=== PATIENT | female | born 1960 | race Caucasian/White ===

== ENCOUNTER → 2018-05-08 07:38 | Outpatient (CLI) | payer OTHER, SELFPAY | PROVIDERS: PCP Naturopath; Visit Provider Naturopath | DX: Z00.00 Encounter for general adult medical examination without abnormal findings (principal); E03.9 Hypothyroidism, unspecified; Z53.9 Procedure and treatment not carried out, unspecified reason ==

== ENCOUNTER → 2018-08-20 06:59 | Outpatient (CLI) | payer OTHER, SELFPAY ==
[2018-08-20 08:50] LABS: Add Manual Diff / Slide Review NO; Eosinophils Percent Auto 3.3 % (2-4); Hematocrit 40.1 % (36-46); Hemoglobin 13.5 g/dL (12.0-16.0); Lymphocytes Percent Auto 46.6 % (25-40); Mean Corpuscular HGB Conc 33.8 % (30-36); Mean Corpuscular Volume 91.8 fL (80-100); Monocytes Percent Auto 8.6 % (3-14); Neutrophils Absolute Auto 1600 /uL (3000-5900); Neutrophils Percent Auto 40.5 % (50-75); Platelet Count 212 X10^3/uL (150-400); Red Blood Cell Count 4.36 X10^6/uL (4.0-5.2); White Blood Cell Count 3.9 X10^3/uL (4.5-11.0)
[2018-08-20 09:07] LABS: Alanine Aminotransferase 30 IU/L (9-52); Albumin 4.4 g/dL (3.5-5.0); Albumin Globulin Ratio 1.5 (1.0-2.8); Alkaline Phosphatase 46 U/L (38-126); Aspartate Aminotransferase 33 IU/L (14-36); BUN Creatinine Ratio 23.8 (6-22); Bilirubin Total 0.7 mg/dL (0.2-1.3); Blood Urea Nitrogen 19 mg/dL (7-17); Calcium 9.4 mg/dL (8.4-10.2); Carbon Dioxide 32 mmol/L (22-32); Chloride 103 mmol/L (98-107); Cholesterol 189 mg/dL (140-199); Estimated Glomerular Filt Rate > 60.0 mL/min (>60); Globulin 2.9 g/dL (1.7-4.1); Glucose 92 mg/dL (80-110); HDL Cholesterol 80 mg/dL (40-60); HEMOLYSIS 16 (0-50); LDL Cholesterol Calculated 99 mg/dL (<100); Potassium 3.8 mmol/L (3.4-5.1); Sodium 145 mmol/L (137-145); Total Protein 7.3 g/dL (6.3-8.2); Triglycerides 49 mg/dL (35-150)
[2018-08-20 09:36] LABS: Free T3, Triiodothyronine Free 2.84 pg/mL (2.77-5.27)
[2018-08-20 09:49] LABS: Thyroid Stimulating Hormone 2.25 uIU/mL (0.47-4.68)
== END ==
PROVIDERS: PCP Naturopath; Visit Provider Naturopath
DX: Z00.00 Encounter for general adult medical examination without abnormal findings (principal); E03.9 Hypothyroidism, unspecified
CPT/HCPCS: 36415; 80053; 80061; 84443; 84481; 85025

== ENCOUNTER → 2019-01-22 08:15 | Outpatient (CLI) | payer OTHER, SELFPAY ==
--- NOTE | 2019-01-22 | DI.MG.S_ITS ---
BILATERAL DIGITAL SCREENING MAMMOGRAM 3D/2D WITH CAD: 01/22/2019 CLINICAL: Routine screening. Family history of breast cancer. Comparison is made to exams dated: 09/28/2017 mammogram, 06/28/2016 mammogram, and 01/01/2015 mammogram - [facility]. The tissue of both breasts is heterogeneously dense. This may lower the sensitivity of mammography. Current study was also evaluated with a Computer Aided Detection (CAD) system. No significant masses, calcifications, or other findings are seen in either breast. There has been no significant interval change. IMPRESSION: NEGATIVE There is no mammographic evidence of malignancy. A 1 year screening mammogram is recommended. This exam was interpreted at Station ID: [id number]. NOTE: For mammograms, a report in lay terms will be sent to the patient. Approximately 15% of breast malignancies will not be visualized mammographically. In the management of a palpable breast mass, a negative mammogram must not discourage biopsy of a clinically suspicious lesion. Electronically Signed By: Alex francis/adele:01/22/2019 15:39:26 letter sent: Normal Exam ACR BI-RADS Category 1: Negative 3341F
== END ==
PROVIDERS: PCP Naturopath; Visit Provider Naturopath
DX: Z12.31 Encounter for screening mammogram for malignant neoplasm of breast (principal); Z80.3 Family history of malignant neoplasm of breast
CPT/HCPCS: 77063; 77067

== ENCOUNTER → 2019-09-19 07:50 | Outpatient (CLI) | payer OTHER, SELFPAY ==
[2019-09-19 08:59] LABS: Add Manual Diff / Slide Review NO; Basophils Absolute Auto 0 /uL (0-100); Basophils Percent Auto 0.9 % (0-2); Eosinophils Absolute Auto 100 /uL (0-450); Eosinophils Percent Auto 2.2 % (2-4); Hematocrit 39.1 % (36-46); Hemoglobin 13.2 g/dL (12.0-16.0); Lymphocytes Absolute Auto 1700 /uL (1100-4500); Lymphocytes Percent Auto 41.8 % (25-40); Mean Corpuscular HGB Conc 33.6 % (30-36); Mean Corpuscular Hemoglobin 31.1 PG (26-34); Mean Corpuscular Volume 92.6 fL (80-100); Monocytes Absolute Auto 400 /uL (0-900); Neutrophils Absolute Auto 1800 /uL (1500-7000); Neutrophils Percent Auto 46.1 % (50-75); Platelet Count 210 X10^3/uL (150-400); Red Blood Cell Count 4.22 X10^6/uL (4.0-5.2)
[2019-09-19 09:06] LABS: Alanine Aminotransferase 14 IU/L (<35); Albumin 4.3 g/dL (3.5-5.0); Albumin Globulin Ratio 1.5 (1.0-2.8); Alkaline Phosphatase 43 U/L (38-126); Aspartate Aminotransferase 26 IU/L (14-36); BUN Creatinine Ratio 28.3 (6-22); Bilirubin Total 0.5 mg/dL (0.2-1.3); Blood Urea Nitrogen 17 mg/dL (7-17); Calcium 9.7 mg/dL (8.4-10.2); Carbon Dioxide 31 mmol/L (22-32); Chloride 103 mmol/L (98-107); Estimated Glomerular Filt Rate > 60.0 mL/min (>60); Globulin 2.8 g/dL (1.7-4.1); Glucose 89 mg/dL (80-110); HEMOLYSIS < 15 (0-50); Potassium 4.1 mmol/L (3.4-5.1); Sodium 139 mmol/L (137-145); Total Protein 7.1 g/dL (6.3-8.2)
== END ==
PROVIDERS: PCP Naturopath; Visit Provider Naturopath
DX: Z00.00 Encounter for general adult medical examination without abnormal findings (principal); R53.83 Other fatigue
CPT/HCPCS: 36415; 80053; 84443; 85025

== ENCOUNTER → 2020-04-22 15:11 | Outpatient (ROUT) | payer OTHER, SELFPAY ==
[2020-04-22 15:26] LABS: Appearance Urine UA CLOUDY; Bilirubin Urine UA NEGATIVE (NEGATIVE); Color Urine UA YELLOW; Glucose Urine UA NEGATIVE (Negative); Ketones Urine UA 1+ (NEGATIVE); Leukocyte Esterase Urine UA 2+ (NEGATIVE); Nitrite Urine UA POSITIVE (Negative); Occult Blood Urine UA 3+ (Negative); Protein Urine UA 3+ (Negative); Specific Gravity Urine UA 1.015 (1.000-1.035); Urobilinogen Urine UA 0.2 E.U./dL (0.2)
[2020-04-22 15:44] LABS: pH Urine UA 6.5 (4.5-8.0)
[2020-04-22 15:50] LABS: RBC Urine 5-10/HPF (0-5/HPF); WBC Urine 30-100/HPF (0-5/HPF)
[2020-04-22 15:51] LABS: Amorphous Sediment Urine 1+; Bacteria Urine Many (>30); Culture Indicated Urine Specimen Cultured; Mucus Urine 1+ (Negative); Squamous Epithelial Cell Urine 0-1 /HPF (0-5/HPF)
== END ==
PROVIDERS: PCP Naturopath; Visit Provider Naturopath
DX: N39.0 Urinary tract infection, site not specified (principal)
CPT/HCPCS: 81001; 87077; 87086; 87186

== ENCOUNTER → 2020-07-27 15:12 | Outpatient (CLI) | payer OTHER, SELFPAY ==
--- NOTE | 2020-07-27 15:21 | DI.MG.S_ITS ---
Patient Name: ANAT GUZMAN date: 1960 Sex: F Attending Physician: Miguel Indications: Date: 07/27/2020 15:19 At the request of: JENNIE PERES Procedure: MM screening mammo BI BILATERAL DIGITAL SCREENING MAMMOGRAM 3D/2D WITH CAD: 07/27/2020 CLINICAL: Routine screening. Family history of breast cancer. Comparison is made to exams dated: 01/22/2019 mammogram, 09/28/2017 mammogram, and 06/28/2016 mammogram - [facility]. The tissue of both breasts is heterogeneously dense. This may lower the sensitivity of mammography. Current study was also evaluated with a Computer Aided Detection (CAD) system. No significant masses, calcifications, or other findings are seen in either breast. There has been no significant interval change. IMPRESSION: NEGATIVE There is no mammographic evidence of malignancy. A 1 year screening mammogram is recommended. This exam was interpreted at Station ID: [id number]. NOTE: For mammograms, a report in lay terms will be sent to the patient. Approximately 15% of breast malignancies will not be visualized mammographically. In the management of a palpable breast mass, a negative mammogram must not discourage biopsy of a clinically suspicious lesion. Electronically Signed By: Marcellus duran/adele:07/27/2020 15:29:38 copy to: JENNIE PERES letter sent: Normal Exam ACR BI-RADS Category 1: Negative 3341F
== END ==
PROVIDERS: PCP Naturopath; Referring Provider Naturopath; Visit Provider Naturopath
DX: Z12.31 Encounter for screening mammogram for malignant neoplasm of breast (principal); Z80.3 Family history of malignant neoplasm of breast
CPT/HCPCS: 77063; 77067

== ENCOUNTER → 2020-12-02 06:50 | Outpatient (CLI) | payer OTHER, SELFPAY ==
[2020-12-02 08:46] LABS: Add Manual Diff / Slide Review NO; Basophils Absolute Auto 0 /uL (0-100); Eosinophils Absolute Auto 100 /uL (0-450); Hematocrit 37.5 % (36-46); Hemoglobin 12.2 g/dL (12.0-16.0); Lymphocytes Absolute Auto 1700 /uL (1100-4500); Lymphocytes Percent Auto 43.8 % (25-40); Mean Corpuscular HGB Conc 32.5 % (30-36); Mean Corpuscular Hemoglobin 30.5 PG (26-34); Mean Corpuscular Volume 93.9 fL (80-100); Monocytes Absolute Auto 300 /uL (0-900); Monocytes Percent Auto 8.8 % (3-14); Neutrophils Absolute Auto 1700 /uL (1500-7000); Neutrophils Percent Auto 43.4 % (50-75); Platelet Count 211 X10^3/uL (150-400); Red Blood Cell Count 3.99 X10^6/uL (4.0-5.2); Red Cell Distribution Width 12.7 % (11.6-14.8); White Blood Cell Count 3.8 X10^3/uL (4.5-11.0)
[2020-12-02 09:01] LABS: Alanine Aminotransferase 13 IU/L (<35); Albumin 3.9 g/dL (3.5-5.0); Albumin Globulin Ratio 1.4 (1.0-2.8); Alkaline Phosphatase 42 U/L (38-126); Aspartate Aminotransferase 31 IU/L (14-36); BUN Creatinine Ratio 28.2 (6-22); Bilirubin Total 0.6 mg/dL (0.2-1.3); Blood Urea Nitrogen 20 mg/dL (7-17); Calcium 9.2 mg/dL (8.4-10.2); Carbon Dioxide 34 mmol/L (22-32); Chloride 104 mmol/L (98-107); Cholesterol 193 mg/dL (140-199); Estimated Glomerular Filt Rate > 60.0 mL/min (>60); Globulin 2.7 g/dL (1.7-4.1); Glucose 83 mg/dL (80-110); HDL Cholesterol 72 mg/dL (40-60); HEMOLYSIS < 15 (0-50); LDL Cholesterol Calculated 109 mg/dL (<100); Potassium 3.9 mmol/L (3.4-5.1); Sodium 139 mmol/L (137-145); Total Protein 6.6 g/dL (6.3-8.2); Triglycerides 60 mg/dL (35-150)
== END ==
PROVIDERS: PCP Naturopath; Referring Provider Naturopath; Visit Provider Naturopath
DX: Z00.00 Encounter for general adult medical examination without abnormal findings (principal); E03.9 Hypothyroidism, unspecified
CPT/HCPCS: 36415; 80053; 80061; 84443; 85025

== ENCOUNTER → 2021-08-05 10:28 | Outpatient (CLI) | payer OTHER, SELFPAY ==
--- NOTE | 2021-08-05 | DI.MG.S_ITS ---
BILATERAL DIGITAL SCREENING MAMMOGRAM 3D/2D WITH CAD: 08/05/2021 CLINICAL: Routine screening. Family history of breast cancer. Comparison is made to exams dated: 07/27/2020 mammogram, 01/22/2019 mammogram, and 09/28/2017 mammogram - [facility]. The tissue of both breasts is heterogeneously dense. This may lower the sensitivity of mammography. Current study was also evaluated with a Computer Aided Detection (CAD) system. No significant masses, calcifications, or other findings are seen in either breast. There has been no significant interval change. IMPRESSION: NEGATIVE There is no mammographic evidence of malignancy. A 1 year screening mammogram is recommended. This exam was interpreted at Station ID: [id number]. NOTE: For mammograms, a report in lay terms will be sent to the patient. Approximately 15% of breast malignancies will not be visualized mammographically. In the management of a palpable breast mass, a negative mammogram must not discourage biopsy of a clinically suspicious lesion. Electronically Signed By: Catarino Orozco M.D., jr/adele:08/05/2021 11:35:02 copy to: JENNIE PERES letter sent: Normal Exam ACR BI-RADS Category 1: Negative 3341F
== END ==
PROVIDERS: PCP Naturopath; Referring Provider Naturopath; Visit Provider Naturopath
DX: Z12.31 Encounter for screening mammogram for malignant neoplasm of breast (principal)
CPT/HCPCS: 77063; 77067

== ENCOUNTER → 2022-02-16 07:58 | Outpatient (CLI) | payer OTHER, SELFPAY ==
[2022-02-16 08:28] LABS: Add Manual Diff / Slide Review NO; Basophils Absolute Auto 0 /uL (0-100); Basophils Percent Auto 1.1 % (0-2); Eosinophils Absolute Auto 100 /uL (0-450); Eosinophils Percent Auto 2.9 % (2-4); Hematocrit 37.1 % (36-46); Hemoglobin 12.6 g/dL (12.0-16.0); Lymphocytes Absolute Auto 1500 /uL (1100-4500); Lymphocytes Percent Auto 45.7 % (25-40); Mean Corpuscular HGB Conc 33.9 % (30-36); Mean Corpuscular Hemoglobin 31.2 PG (26-34); Mean Corpuscular Volume 92.1 fL (80-100); Monocytes Absolute Auto 300 /uL (0-900); Monocytes Percent Auto 9.7 % (3-14); Neutrophils Absolute Auto 1400 /uL (1500-7000); Neutrophils Percent Auto 40.6 % (50-75); Platelet Count 212 X10^3/uL (150-400); Red Blood Cell Count 4.03 X10^6/uL (4.0-5.2); Red Cell Distribution Width 12.9 % (11.6-14.8); White Blood Cell Count 3.4 X10^3/uL (4.5-11.0)
[2022-02-16 08:43] LABS: Alanine Aminotransferase 14 IU/L (<35); Albumin 4.2 g/dL (3.5-5.0); Albumin Globulin Ratio 1.4 (1.0-2.8); Alkaline Phosphatase 36 U/L (38-126); Aspartate Aminotransferase 25 IU/L (14-36); BUN Creatinine Ratio 19.4 (6-22); Bilirubin Total 0.8 mg/dL (0.2-1.3); Blood Urea Nitrogen 13 mg/dL (7-17); Calcium 9.1 mg/dL (8.4-10.2); Carbon Dioxide 31 mmol/L (22-32); Chloride 106 mmol/L (98-107); Cholesterol 191 mg/dL (140-199); Estimated Glomerular Filt Rate > 60.0 mL/min (>60); Globulin 2.9 g/dL (1.7-4.1); Glucose 95 mg/dL (80-110); HDL Cholesterol 70 mg/dL (40-60); HEMOLYSIS < 15 (0-50); LDL Cholesterol Calculated 106 mg/dL (<100); Potassium 3.9 mmol/L (3.4-5.1); Sodium 138 mmol/L (137-145); Total Protein 7.1 g/dL (6.3-8.2); Triglycerides 74 mg/dL (35-150)
[2022-02-16 11:03] LABS: Free T3, Triiodothyronine Free 3.31 pg/mL (2.77-5.27); Free T4, Direct Thyroxine 0.99 ng/dL (0.78-2.19)
[2022-02-16 11:17] LABS: Thyroid Stimulating Hormone 3.59 uIU/mL (0.47-4.68)
== END ==
PROVIDERS: PCP Family Medicine; Referring Provider Family Medicine; Visit Provider Family Medicine
DX: E03.9 Hypothyroidism, unspecified (principal); M25.561 Pain in right knee; M25.562 Pain in left knee; M25.569 Pain in unspecified knee; Z13.220 Encounter for screening for lipoid disorders
CPT/HCPCS: 36415; 80053; 80061; 84439; 84443; 84481; 85025

== ENCOUNTER → 2022-04-10 09:19 | Outpatient (CLI) | payer OTHER, SELFPAY ==
[2022-04-10 12:27] LABS: COVID19 -Nasal RAPID Negative (Negative)
== END ==
PROVIDERS: PCP Family Medicine; Visit Provider Surgery
DX: Z20.822 Contact with and (suspected) exposure to COVID-19 (principal); Z01.812 Encounter for preprocedural laboratory examination
CPT/HCPCS: 87635; C9803

== ENCOUNTER 2022-04-11 06:27 | Day surgery (SDC) | payer OTHER, SELFPAY ==
[2022-04-11] VITALS (7 sets, daily range): BP systolic 96–111; BP diastolic 53–69; PULSE 53–59; RESP 11–20; TEMP 36.3–36.8; O2SAT 98–100; BMI 23.3
[2022-04-11] MEDS: LACTATED RINGERS 1,000 ML 42 ML IV (07:02)
--- NOTE | 2022-04-11 07:47 | PM.HP.1 ---
History of Present Illness History of Present Illness Date Patient Seen: 04/11/22 Time Patient Seen: 07:47 Chief complaint: SCREENING COLONOSCOPY Narrative: The patient presents for colorectal screening. She had a previous colonoscopy greater than 10 years ago which was reportedly normal No personal or family history of colon cancer. On further history denies any recent gastrointestinal symptoms. No nausea, vomiting, abdominal pain, loss of appetite, unexplained weight loss, change in bowel habits, diarrhea, constipation, melena, hematochezia, or bright red blood per rectum. Patient History Medical History Anxiety and depression (~1979) Bilateral knee pain Foot pain (~2019) Herpes (~2010) History of urinary incontinence (~2017) Osteopenia (~2014) Somatic dysfunction of lower extremity Wears glasses Surgical History Anesthesia Status post delivery Status post tubal ligation Family & Social History Family History Father Hyperlipidemia Valvular heart disease High cholesterol Sister Age: 70 Breast CA Osteopenia Thyroid disease Sister Paget's disease of the breast Breast CA Mother No problems noted. Grandfather Cancer Grandmother History of heart disease Grandfather History of heart disease Social History: household members significant other Tobacco & Substance use: Smoking Status Never smoker alcohol intake current alcohol intake frequency a few times a month Substance Use Type does not use Meds Home Medications and Allergies Home Medications Medication Instructions Recorded Confirmed Type acyclovir 400 mg tablet 400 mg PO TID #30 tab 11/23/16 02/03/22 Rx thyroid (pork) 30 mg tablet 30 mg PO Q DAY #90 tab 09/26/17 02/03/22 Rx ([facility] Thyroid) Osteoben PO 10/04/21 02/03/22 History cholecalciferol (vitamin D3) 50 50 mcg PO DAILY 10/04/21 02/03/22 History mcg (2,000 unit) capsule sleep 3 PO 10/04/21 02/03/22 History Allergies Allergy/AdvReac Type Severity Reaction Status Date / Time No Known Drug Allergies Allergy Verified 04/11/22 06:56 Exam Vital Signs (past 8 hours): - 04/11/22 06:51 Temperature 97.5 F L Pulse Rate 54 L Respiratory Rate 15 Blood Pressure 111/69 Pulse Oximetry 100 Oxygen Delivery Method Room Air Narrative Exam Narrative: GENERAL: Adult woman in no apparent distress HEENT: No scleral icterus CV: Regular rate, no peripheral edema LUNGS: No increased work of breathing. Patient speaks in full sentences without oxygen support. ABDOMEN: Soft, non-tender, non-distended NEURO: Nonfocal, normal strength throughout, normal gait. SKIN: Warm and dry Assessment & Plan Assessment & Plan narrative: The patient requires colorectal screening and colonoscopy is recommended. Technical details were discussed. Risks, benefits, alternatives explained. Risks including but not limited to myocardial infarction, aspiration, bleeding, pain, missed lesion, incomplete examination, need for further radiographic studies, colonic perforation, and need for major abdominal surgery were discussed. All questions were answered to their satisfaction, and they are in agreement with this plan. Time Spent With Patient Critical Care time: I spent a total of [] minutes of critical care time on this patient's care today; this time is exclusive of procedural time.
[2022-04-11] MEDS: fentaNYL 250 MCG/5 ML INJ IV (08:24)
[2022-04-11] MEDS: MIDAZOLAM 5 MG/5 ML VIAL IV (08:24)
--- NOTE | 2022-04-11 08:31 | P.OP.COLON_ITS ---
Operative Date/Time/Diagnoses Date of procedure: 04/11/22 Time of procedure: 08:31 Pre-op diagnosis: Screening Post-op diagnosis: same Procedure & Clinicians Study performed: Colonoscopy Same procedure as scheduled: Yes Indications: Screening Surgeon: Rayo Campos Procedure Notes Procedure in detail: Medications: Conscious sedation using 7mg IV midazolam and 200mcg IV of fentanyl The history and physical was performed/updated and the patient is ASA class is 1. The procedure was discussed in detail with the patient. Potential risks complications including infection, bleeding, missed diagnosis, perforation, need for surgery, and were explained. Their questions were answered and informed consent was obtained. Patient was brought to the procedure room and placed standard monitoring equipment. The patient's vital signs were monitored continuously throughout the entire procedure. Prior to starting time-out was performed. The patient was placed in the left lateral recumbent position. Procedural sedation was administ ered. Examination began with a thorough inspection of the perianal area there was no evidence of fissures, fistulae, external hemorrhoids or cutaneous malignancy. The colonoscopy scope was then placed into the anal canal and was advanced to the cecum, which was identified by the ileocecal valve, the appendiceal orifice and the confluence of the taenia. The scope was then slowly withdrawn examining colon thoroughly in all directions, irrigating it of any residual stool. FINDINGS 1. No masses or polyps 2. Normal healthy colon The patient tolerated the procedure well. They will be discharged once criteria are met. The prep was of good/excellent quality. The withdrawl time was 6 minutes. The sedation time was 25 minutes. Specimen(s): none sent Complications: none Impression: Normal colonoscopy Post-procedure Recommendations: Colonoscopy in 10 years Disposition: same day surgery
[2022-04-11] MEDS: LACTATED RINGERS 1,000 ML 200 ML IV (08:36)
--- NOTE | 2022-04-11 09:09 | SUR.PHASEII ---
pt given discharge instructions. pt denies any complaints. Pt to be discharged with her . pt had apple juice and coffee prior to discharge.
== END 2022-04-11 09:11 | disposition home or self-care (01) ==
PROVIDERS: PCP Family Medicine; Referring Provider Surgery; Visit Provider Surgery
PROC: 0DJD8ZZ Inspection of Lower Intestinal Tract, Via Natural or Artificial Opening Endoscopic (ICD-10-PCS; CPT 45378; principal; 2022-04-11 07:45)
DX: Z12.11 Encounter for screening for malignant neoplasm of colon (principal)
CPT/HCPCS: 45378; 99152; 99153; J2250; J3010

== ENCOUNTER → 2022-09-14 08:05 | Outpatient (CLI) | payer OTHER, SELFPAY ==
--- NOTE | 2022-09-14 08:07 | DI.MG.S_ITS ---
BILATERAL DIGITAL SCREENING MAMMOGRAM 3D/2D WITH CAD: 09/14/2022 CLINICAL: Routine screening. Family history of breast cancer. Comparison is made to exams dated: 08/05/2021 mammogram, 07/27/2020 mammogram, and 01/22/2019 mammogram - [facility]. Both breasts are heterogeneously dense, which may obscure small masses (category c / 51-75% glandular tissue). Current study was also evaluated with a Computer Aided Detection (CAD) system. No significant masses, calcifications, or other findings are seen in either breast. There has been no significant interval change. IMPRESSION: NEGATIVE There is no mammographic evidence of malignancy. A 1 year screening mammogram is recommended. Based on Tyrer-Cuzick model (a risk assessment model), the patient's lifetime risk is 31.3% and her 10 year risk is 15.6%. If a patient has an elevated risk, a more comprehensive evaluation should be considered and/or a referral to a genetic counselor. The [place] [employer], [employer] [employer], and NCCN Guidelines advise the consideration of Breast MRI as an adjunct to screening mammography in patients whose Lifetime risk to develop breast cancer is 20% or higher. This exam was interpreted at Station ID: [id number]. NOTE: For mammograms, a report in lay terms will be sent to the patient. Approximately 15% of breast malignancies will not be visualized mammographically. In the management of a palpable breast mass, a negative mammogram must not discourage biopsy of a clinically suspicious lesion. Electronically Signed By: Marcellus duran/adele:09/14/2022 15:48:58 copy to: JENNIE PERES letter sent: Normal Exam ACR BI-RADS Category 1: Negative 3341F
== END ==
PROVIDERS: PCP Family Medicine; Referring Provider Family Medicine; Visit Provider Family Medicine
DX: Z12.31 Encounter for screening mammogram for malignant neoplasm of breast (principal); Z80.3 Family history of malignant neoplasm of breast
CPT/HCPCS: 77063; 77067

== ENCOUNTER → 2023-03-01 10:20 | Outpatient (CLI) | payer OTHER, SELFPAY ==
--- NOTE | 2023-03-01 10:38 | DI.DEXA.S_ITS ---
Bone Density Report Name: ANAT GUZMAN Age: 62 Sex: Female Ethnicity: White Date of : 1960 Indication: osteopenia; Referring Provider: SASKIA FORD Study: Bone densitometry was performed. Exam Date: March 01, 2023 Accession number: [id number] Bone Density: Region BMD T-score Z-score Classification AP Spine(L1-L4) 0.799 -2.3 -0.5 Osteopenia Femoral Neck (Left) 0.693 -1.4 0.1 Osteopenia Total Hip (Left) 0.780 -1.3 -0.1 Osteopenia Femoral Neck (Right) 0.710 -1.3 0.2 Osteopenia Total Hip (Right) 0.828 -0.9 0.3 Normal Total Hip Mean 0.804 -1.1 0.1 Osteopenia World Health Organization criteria for BMD impression classify patients as: Normal (T-score at or above -1.0), Osteopenia (T-score between -1.0 and -2.5), or Osteoporosis (T-score at or below -2.5). 10-year Fracture Risk(1): Major Osteoporotic Fracture 8.3% Hip Fracture 0.8% Reported Risk Factors: [place] (), Neck BMD=0.693, BMI=23.4 (1) FRAX(R) Version 3.08. Fracture probability calculated for an untreated patient. Fracture probability may be lower if the patient has received treatment. Previous Exams: -- Region Exam Age BMD T-score BMD Change BMD Change Date g/cm2 vs Baseline vs Previous -- AP Spine (L1-L4) 03/01/2023 62 0.799 -2.3 -0.132 (-14.2%)# -0.132 (-14.2%)# 10/02/2016 56 0.931 -1.1 Total Hip(Left) 03/01/2023 62 0.780 -1.3 -0.048 (-5.8%)# -0.048 (-5.8%)# 10/02/2016 56 0.828 -0.9 Total Hip(Right) 03/01/2023 62 0.828 -0.9 -0.019 (-2.3%)# -0.019 (-2.3%)# 10/02/2016 56 0.847 -0.8 -- *Denotes significance at 95% confidence level, LSC for AP Spine = 0.022 g/cm2, LSC for Total Hip = 0.027 g/cm2 # Denotes dissimilar scan types or analysis methods Impression: The patient has low bone mass, based on the Total Spine T-score. The patient has an estimated ten-year risk of hip fracture of 0.8% and an estimated ten-year risk of major fracture of 8.3%, based on the WHO FRAX algorithm. No significant bone loss was observed. Discussion: BONE DENSITY IS LOW AT ONE OR MORE SKELETAL SITES. This patient's lowest T-score is low at one or more skeletal sites. It meets the World Health Organization's (WHO) criteria for ?low bone mass? (T-score between -1.0 and -2.5). The patient's 10-year risk of fracture as calculated by FRAX is less than the threshold where pharmacological therapy is recommended by the National Osteoporosis Foundation (NOF). However, all treatment decisions require clinical judgment and consideration of individual patient factors, including patient preferences, comorbidities, previous drug use, risk factors not captured in the FRAX model (e.g., frailty, falls, vitamin D deficiency, increased bone turnover, interval significant decline in bone density) and possible under or overestimation of fracture risk by FRAX. The patient should follow a healthful lifestyle (good nutrition with adequate calcium and vitamin D, and appropriate weight-bearing exercise). Follow-Up: Consider repeating this study in 2 to 3 years to reassess this patient's status, or sooner if there is some new clinical indication. Reported by: ELOISE NUGENT M.D. on 03/01/2023 10:45:00 AM.
== END ==
PROVIDERS: PCP Family Medicine; Referring Provider Family Medicine; Visit Provider Family Medicine
DX: M85.88 Other specified disorders of bone density and structure, other site (principal); E03.9 Hypothyroidism, unspecified; Z78.0 Asymptomatic menopausal state
CPT/HCPCS: 77080

== ENCOUNTER → 2023-04-11 10:37 | Outpatient (CLI) | payer OTHER, SELFPAY ==
[2023-04-11 12:10] LABS: Free T3, Triiodothyronine Free 4.43 pg/mL (2.77-5.27); Free T4, Direct Thyroxine 0.85 ng/dL (0.78-2.19)
[2023-04-11 12:23] LABS: Thyroid Stimulating Hormone 1.85 uIU/mL (0.47-4.68)
== END ==
PROVIDERS: PCP Family Medicine; Referring Provider Family Medicine; Visit Provider Family Medicine
DX: E03.9 Hypothyroidism, unspecified (principal)
CPT/HCPCS: 36415; 84439; 84443; 84481

== ENCOUNTER → 2023-06-14 16:29 | Outpatient (CLI) | payer OTHER, SELFPAY ==
--- NOTE | 2023-06-14 16:33 | DI.RAD.S_ITS ---
PROCEDURE: XR KNEE RT 1TO2V INDICATIONS: knee pain TECHNIQUE: 2 views of the knee were acquired. COMPARISON: [facility], , KNEE 3V LEFT, 03/25/2011, 9:44. [facility], , KNEE 3V RIGHT, 03/25/2011, 9:44. FINDINGS: Bones: No acute fractures or dislocations. No suspicious bony lesions. Small suprapatellar enthesophyte. Mild joint space narrowing in the lateral femorotibial compartment. Soft tissues: No joint effusion. No suspicious soft tissue calcifications. IMPRESSION: Mild osteoarthrosis. Approved by: Marcellus Dubois M.D. on 06/15/2023 at 10:44
--- NOTE | 2023-06-14 16:33 | DI.RAD.S_ITS ---
PROCEDURE: XR KNEE LT 1TO2V INDICATIONS: knee pain TECHNIQUE: 2 views of the knee were acquired. COMPARISON: [facility], , KNEE 3V LEFT, 03/25/2011, 9:44. FINDINGS: Bones: No acute fractures or dislocations. No suspicious bony lesions. Mild joint space narrowing is seen in the lateral femorotibial compartment. Soft tissues: No joint effusion. No suspicious soft tissue calcifications. IMPRESSION: Mild lateral compartment osteoarthrosis. Dictated by: Marcellus Dubois M.D. on 06/15/2023 at 10:41 Approved by: Marcellus Dubois M.D. on 06/15/2023 at 10:42
== END ==
PROVIDERS: PCP Family Medicine; Referring Provider Family Medicine; Visit Provider Family Medicine
DX: M17.0 Bilateral primary osteoarthritis of knee (principal); M25.561 Pain in right knee; M25.562 Pain in left knee
CPT/HCPCS: 73560

== ENCOUNTER 2023-07-13 09:00 | Outpatient (RCR) | payer OTHER, SELFPAY ==
--- NOTE | 2023-06-22 17:09 | PT.OIE ---
Current Diagnoses Pain in right knee (06/22/23) Pain in left knee (06/22/23) Past Medical History (Last Updated 01/25/23 @ 10:01 by Jared Birch DO) Anxiety and depression (~1979) Bilateral knee pain Body posture problem Cervical somatic dysfunction Chronic post-traumatic headache Cranial somatic dysfunction Fall (on)(from) incline, sequela Foot pain (~2019) Head injury due to trauma Herpes (~2010) History of urinary incontinence (~2017) Neck stiffness Osteopenia (~2014) Segmental and somatic dysfunction of rib cage Somatic dysfunction of lower extremity Wears glasses Past Surgical History (Last Reviewed 04/11/22 @ 07:48 by Rayo Campos MD) Anesthesia Status post delivery Status post tubal ligation Visit Care Team Role Provider Type Jared Birch DO Attending Provider Physician Family Provider Primary Care Provider Referring Provider Specialty: Family Practice Address: [address] [place] [address] Email: Physical Therapy Initial Evaluation PT-OP-A Visit Information Start: 06/22/23 16:04 Freq: Status: Active Protocol: Document 06/22/23 16:05 ED (Rec: 06/22/23 17:09 ED [id number]) Out-Patient Physical Therapy Visit Information Visit Information Visit Type Initial Evaluation Visit Start Time 16:00 Visit Stop Time 16:45 Total Visit Minutes 45 Visit Number 1 PT-OP-B Current Condition Start: 06/22/23 16:04 Freq: Status: Active Protocol: Document 06/22/23 16:05 ED (Rec: 06/22/23 17:09 ED [id number]) Current Condition History of Current Condition Current Complaints B knee pain History of Current Condition Pt states that she has been noticing bilateral knee pain mostly after long hikes. She states she had radiographs which revealed mild OA in both knees. She states that she will have a little swelling and pain after long hikes, especially when going down the mountain. Pt states that she used to lift weights but has not been doing that since COVID started. She states that she has 5# ankle weights at home and no other exercise equipment. Treatment Goals Patient/Caregiver Goals Be able to hike 8 miles c/o debilitating pain. PT-OP-C Subjective Start: 06/22/23 16:04 Freq: Status: Active Protocol: Document 06/22/23 16:05 ED (Rec: 06/22/23 17:09 ED [id number]) OP-PT Subjective Patient Comments Patient Reported Progress Same Patient Questionnaires Lower Extremity Functional Scale LEFS Score 64/80 LEFS Impairment 1 to 19% Impaired (Score 63-79 ) OP-PT Pain Assessment Location knee Intensity 4 Scale Used Numeric (0 - 10) Description Dull,Pressure Pain Aggravating Factors Activity,Exercise,Stair Climbing PT-OP-K Range of Motion Start: 06/22/23 16:04 Freq: Status: Active Protocol: Document 06/22/23 16:05 ED (Rec: 06/22/23 17:09 ED [id number]) Knee Goniometric Range of Motion Knee Right Patient Position Supine Flexion Active (degrees) 135 Extension Active (degrees) 5 Comments lacking 5 degrees ext Left Patient Position Supine Flexion Active (degrees) 135 Extension Active (degrees) 5 Comments lacking 5 degrees ext PT-OP-M Strength Start: 06/22/23 16:04 Freq: Status: Active Protocol: Document 06/22/23 16:05 ED (Rec: 06/22/23 17:09 ED [id number]) Knee Strength Knee Manual Muscle Testing Right Flexion (S2) 5 Normal Extension (L3) 5 Normal Left Flexion (S2) 5 Normal Extension (L3) 5 Normal PT-OP-Q Treatments Start: 06/22/23 16:04 Freq: Status: Active Protocol: Document 06/22/23 16:05 ED (Rec: 06/22/23 17:09 ED [id number]) Therapeutic Exercises Supine Exercises bridge Side bilateral Reps/Minutes 3x8-12 Comments unilateral Sitting Exercises LAQ Side bilateral Reps/Minutes [id number] Comments unilateral Standing Exercises heel raise Side bilateral Reps/Minutes 2-3xfatigue Comments unilateral wall squat Reps/Minutes [id number]'' Comments isometric split squat Side bilateral Reps/Minutes [id number] Other Exercises couch stretch Side bilateral Reps/Minutes x30-60'' PT-OP-T Assessment and Plan Start: 06/22/23 16:04 Freq: Status: Active Protocol: Document 06/22/23 16:05 ED (Rec: 06/22/23 17:09 ED [id number]) Physical Therapy Assessment Rehab Potential Rehabilitation Potential Good Evaluation Complexity Number of Personal Factors/Comorbidities 1-2 Number of Body Systems Impaired 1-2 Clinical Presentation at Evaluation Stable Impairments Impairments Activity Tolerance,Pain,ROM Goals Four Impairment LEFs Skilled Nursing Goal (LTG) Pt will ipmrove LEFS score to 70/80. Three Impairment pain Short Term Goal (STG) Pt will report 20% improvement in pain during recreational activities. STG Duration 3 weeks Skilled Nursing Goal (LTG) Pt will report 50% improvement in pain during recreational activities. LTG Duration 6-8 weeks Two Impairment ROM Short Term Goal (STG) Pt will improve knee extension ROM to 0 degrees STG Duration 3-4 weeks One Impairment HEP Short Term Goal (STG) Pt will report performing HEP 2-3 days/week. STG Duration 2 weeks Leather Cutter Goal (LTG) Pt will report performing HEP 2-3 days/week. LTG Duration 6 weeks Assessment Summary Assessment Pt reported to PT c/ complaints of bilateral knee pain (located mostly laterally ) that occurs primarily after long hikes (~8 miles). She demonstrated reduced extension ROM by about 5 degrees but had full knee flexion ROM. Pt is an active adult and is able to hike 4 miles comfortably. I do not believe she has any significant knee pathology but her pain/discomfort is geared more towards load intolerance d/t increase in steps and overall force in knee during longer hikes. Pt provided c/ comprehensive strengthening routine for LEs including: wall squats, split squats, single leg bridges, single leg heel raises, couch stretch, and LAQ which she was able to perform during evaluation c/o pain. PT will work on progressing patient in exercises so she can perform longer hikes c/o pain. Physical Therapy Plan Frequency and Duration Frequency of Treatment 1x/Week Duration of treatment (weeks) 10 Plan of Care Start Date 06/22/23 Plan of Care End Date 09/20/23 Therapeutic Interventions Therapeutic Interventions Balance Training,Gait Training ,Home Exercise Program,Joint Mobilizations,Manual Therapy, Soft Tissue Mobilization, Taping,Therapeutic Activities, Therapeutic Exercises Modalities Biofeedback,Cold Pack/Ice Massage,Electric Stimulation, Hot Packs Next Visit Focus/Plan Next Note Type Treatment Note Next Visit Plan bike, HEP (split squat, single leg bridge, single leg heel raise, wall squat, LAQ, couch stretch), SL balance, drop jumps
--- NOTE | 2023-06-22 17:12 | PT.OPPOC ---
Physical, Occupational & Speech Therapy At [facility] Current Diagnoses Pain in right knee (06/22/23) Pain in left knee (06/22/23) Visit Care Team Role Provider Type Jared Birch DO Attending Provider Physician Family Provider Primary Care Provider Referring Provider Specialty: Family Practice Address: [address] [place] [address], [facility] Email: Plan Of Care PT-OP-T Assessment and Plan Start: 06/22/23 16:04 Freq: Status: Active Protocol: Document 06/22/23 16:05 ED (Rec: 06/22/23 17:09 ED [id number]) Physical Therapy Assessment Rehab Potential Rehabilitation Potential Good Evaluation Complexity Number of Personal Factors/Comorbidities 1-2 Number of Body Systems Impaired 1-2 Clinical Presentation at Evaluation Stable Impairments Impairments Activity Tolerance,Pain,ROM Goals Four Impairment LEFs Jail Goal (LTG) Pt will [place] LEFS score to 70/80. Three Impairment pain Short Term Goal (STG) Pt will report 20% improvement in pain during recreational activities. STG Duration 3 weeks Communications Strategist Goal (LTG) Pt will report 50% improvement in pain during recreational activities. LTG Duration 6-8 weeks Two Impairment ROM Short Term Goal (STG) Pt will improve knee extension ROM to 0 degrees STG Duration 3-4 weeks One Impairment HEP Short Term Goal (STG) Pt will report performing HEP 2-3 days/week. STG Duration 2 weeks Jail Goal (LTG) Pt will report performing HEP 2-3 days/week. LTG Duration 6 weeks Assessment Summary Assessment Pt reported to PT c/ complaints of bilateral knee pain (located mostly laterally ) that occurs primarily after long hikes (~8 miles). She demonstrated reduced extension ROM by about 5 degrees but had full knee flexion ROM. Pt is an active adult and is able to hike 4 miles comfortably. I do not believe she has any significant knee pathology but her pain/discomfort is geared more towards load intolerance d/t increase in steps and overall force in knee during longer hikes. Pt provided c/ comprehensive strengthening routine for LEs including: wall squats, split squats, single leg bridges, single leg heel raises, couch stretch, and LAQ which she was able to perform during evaluation c/o pain. PT will work on progressing patient in exercises so she can perform longer hikes c/o pain. Physical Therapy Plan Frequency and Duration Frequency of Treatment 1x/Week Duration of treatment (weeks) 10 Plan of Care Start Date 06/22/23 Plan of Care End Date 09/20/23 Therapeutic Interventions Therapeutic Interventions Balance Training,Gait Training ,Home Exercise Program,Joint Mobilizations,Manual Therapy, Soft Tissue Mobilization, Taping,Therapeutic Activities, Therapeutic Exercises Modalities Biofeedback,Cold Pack/Ice Massage,Electric Stimulation, Hot Packs Next Visit Focus/Plan Next Note Type Treatment Note Next Visit Plan bike, HEP (split squat, single leg bridge, single leg heel raise, wall squat, LAQ, couch stretch), SL balance, drop jumps Plan of Care Dates Plan of Care Start Date 06/22/23 Plan of Care End Date 09/20/23 Electronically Signed by: Porter Flores, PT 06/22/23 0175 If you are in agreement with this Plan of Care, please return a signed and dated copy. I have reviewed this Plan of Care and certify that the skilled therapy services above are required to meet the patient?s needs. Physician Signature Date Printed Name and Credentials Clinical Instructor Signature Printed Name and Credentials
--- NOTE | 2023-06-27 12:16 | PT.OTN ---
Current Diagnoses Pain in right knee (06/27/23) Pain in left knee (06/27/23) Physical Therapy Treatment Note PT-OP-A Visit Information Start: 06/22/23 16:04 Freq: Status: Active Protocol: Document 06/27/23 12:13 ED (Rec: 06/27/23 12:16 ED [id number]) Out-Patient Physical Therapy Visit Information Visit Information Visit Type Treatment Note Visit Start Time 11:30 Visit Stop Time 12:10 Total Visit Minutes 40 Visit Number 2 PT-OP-B Current Condition Start: 06/22/23 16:04 Freq: Status: Active Protocol: Document 06/22/23 16:05 ED (Rec: 06/22/23 17:09 ED [id number]) Current Condition History of Current Condition Current Complaints B knee pain History of Current Condition Pt states that she has been noticing bilateral knee pain mostly after long hikes. She states she had radiographs which revealed mild OA in both knees. She states that she will have a little swelling and pain after long hikes, especially [place] the [place]. Pt states that she used to lift weights but has not been doing that since started. She states that she has 5# ankle weights at home and no other exercise equipment. Treatment Goals Patient/Caregiver Goals Be able to hike 8 miles c/o debilitating pain. PT-OP-C Subjective Start: 06/22/23 16:04 Freq: Status: Active Protocol: Document 06/27/23 12:13 ED (Rec: 06/27/23 12:16 ED [id number]) OP-PT Subjective Patient Comments Patient Comments Pt states she went on a 7 mile hike this weekend and felt great afterwards. Notes the exericses at home have been going well and she thinks she is on the right track. PT-OP-K Range of Motion Start: 06/22/23 16:04 Freq: Status: Active Protocol: Document 06/22/23 16:05 ED (Rec: 06/22/23 17:09 ED [id number]) Knee Goniometric Range of Motion Knee Right Patient Position Supine Flexion Active (degrees) 135 Extension Active (degrees) 5 Comments lacking 5 degrees ext Left Patient Position Supine Flexion Active (degrees) 135 Extension Active (degrees) 5 Comments lacking 5 degrees ext PT-OP-M Strength Start: 06/22/23 16:04 Freq: Status: Active Protocol: Document 06/22/23 16:05 ED (Rec: 06/22/23 17:09 ED [id number]) Knee Strength Knee Manual Muscle Testing Right Flexion (S2) 5 Normal Extension (L3) 5 Normal Left Flexion (S2) 5 Normal Extension (L3) 5 Normal PT-OP-Q Treatments Start: 06/22/23 16:04 Freq: Status: Active Protocol: Document 06/27/23 12:13 ED (Rec: 06/27/23 12:16 ED [id number]) Cardio Equipment Bicycle (Upright) Duration (Minutes) 10 Resistance 4 Therapeutic Exercises Supine Exercises bridge Side bilateral Reps/Minutes 3x8-12 Comments unilateral Sitting Exercises LAQ Side bilateral Reps/Minutes [id number] Comments unilateral Standing Exercises heel raise Side bilateral Reps/Minutes 2-3xfatigue Comments unilateral wall squat Reps/Minutes [id number]'' Comments isometric split squat Side bilateral Reps/Minutes 2-4k99-08 Other Exercises couch stretch Side bilateral Reps/Minutes x30-60'' PT-OP-T Assessment and Plan Start: 06/22/23 16:04 Freq: Status: Active Protocol: Document 06/27/23 12:13 ED (Rec: 06/27/23 12:16 ED [id number]) Physical Therapy Assessment Assessment Summary Assessment Pt currently doing well and feels like she will be able to take these exercises and do them on her own soon. PT and patient discussed adding a few more movemetns and consolidating them into a weekly routine that she can perform. PT added TKEs, eccentric step downs, and IT band stretch to her routine today. Physical Therapy Plan Next Visit Focus/Plan Next Note Type Treatment Note Next Visit Plan make workout routine added eccentric step downs, drop jumps, IT band stretch, and TKEs
--- NOTE | 2023-07-04 15:11 | PT.OTN ---
Current Diagnoses Pain in right knee (07/04/23) Pain in left knee (07/04/23) Physical Therapy Treatment Note PT-OP-A Visit Information Start: 06/22/23 16:04 Freq: Status: Active Protocol: Document 07/04/23 15:08 ED (Rec: 07/04/23 15:11 ED [id number]) Out-Patient Physical Therapy Visit Information Visit Information Visit Type Treatment Note Visit Start Time 14:15 Visit Stop Time 15:00 Total Visit Minutes 45 Visit Number 3 PT-OP-B Current Condition Start: 06/22/23 16:04 Freq: Status: Active Protocol: Document 06/22/23 16:05 ED (Rec: 06/22/23 17:09 ED [id number]) Current Condition History of Current Condition Current Complaints B knee pain History of Current Condition Pt states that she has been noticing bilateral knee pain mostly after long hikes. She states she had radiographs which revealed mild OA in both knees. She states that she will have a little swelling and pain after long hikes, especially when going down the mountain. Pt states that she used to lift weights but has not been doing that since started. She states that she has 5# ankle weights at home and no other exercise equipment. Treatment Goals Patient/Caregiver Goals Be able to hike 8 miles c/o debilitating pain. PT-OP-C Subjective Start: 06/22/23 16:04 Freq: Status: Active Protocol: Document 07/04/23 15:08 ED (Rec: 07/04/23 15:11 ED [id number]) OP-PT Subjective Patient Comments Patient Comments Pt states that she has been doing her HEP pretty regularly and feels like her knees are feeling better. She is hopeful to join the gym in July. Would like to go over a detailed workout regimine. PT-OP-K Range of Motion Start: 06/22/23 16:04 Freq: Status: Active Protocol: Document 06/22/23 16:05 ED (Rec: 06/22/23 17:09 ED [id number]) Knee Goniometric Range of Motion Knee Right Patient Position Supine Flexion Active (degrees) 135 Extension Active (degrees) 5 Comments lacking 5 degrees ext Left Patient Position Supine Flexion Active (degrees) 135 Extension Active (degrees) 5 Comments lacking 5 degrees ext PT-OP-M Strength Start: 06/22/23 16:04 Freq: Status: Active Protocol: Document 06/22/23 16:05 ED (Rec: 06/22/23 17:09 ED [id number]) Knee Strength Knee Manual Muscle Testing Right Flexion (S2) 5 Normal Extension (L3) 5 Normal Left Flexion (S2) 5 Normal Extension (L3) 5 Normal PT-OP-Q Treatments Start: 06/22/23 16:04 Freq: Status: Active Protocol: Document 07/04/23 15:08 ED (Rec: 07/04/23 15:11 ED [id number]) Cardio Equipment Bicycle (Upright) Duration (Minutes) 10 Resistance 4 Therapeutic Exercises Supine Exercises bridge Side bilateral Reps/Minutes 3x8-12 Comments unilateral Sitting Exercises LAQ Side bilateral Reps/Minutes [id number] Comments unilateral Standing Exercises heel raise Side bilateral Reps/Minutes 2-3xfatigue Comments unilateral wall squat Reps/Minutes [id number]'' Comments isometric split squat Side bilateral Reps/Minutes 2-6v27-51 Other Exercises couch stretch Side bilateral Reps/Minutes x30-60'' Therapeutic Activity Therapeutic Activity squat Reps/Minutes x15 step up Name eccentric step down Reps/Minutes 1x10 Comments 8'' PT-OP-T Assessment and Plan Start: 06/22/23 16:04 Freq: Status: Active Protocol: Document 07/04/23 15:08 ED (Rec: 07/04/23 15:11 ED [id number]) Physical Therapy Assessment Goals Four Impairment LEFs Sales And Service Engineer Goal (LTG) Pt will [place] LEFS score to 70/80. Three Impairment pain Short Term Goal (STG) Pt will report 20% improvement in pain during recreational activities. STG Duration 3 weeks Prison Goal (LTG) Pt will report 50% improvement in pain during recreational activities. LTG Duration 6-8 weeks Two Impairment ROM Short Term Goal (STG) Pt will improve knee extension ROM to 0 degrees STG Duration 3-4 weeks One Impairment HEP Short Term Goal (STG) Pt will report performing HEP 2-3 days/week. STG Duration 2 weeks Prison Goal (LTG) Pt will report performing HEP 2-3 days/week. LTG Duration 6 weeks Assessment Summary Assessment PT and patient went through the HEP that the patient currently has in order to condense it into a more structured routine. PT added additional exercises such as bridge variations, walking lunges, squats, and introduction to jumping activities. PT and patient will go over routine again at next visit so patient can become more independent in her exercise programming.
--- NOTE | 2023-07-13 09:40 | PT.OTN ---
Current Diagnoses Pain in right knee (07/13/23) Pain in left knee (07/13/23) Physical Therapy Treatment Note PT-OP-A Visit Information Start: 06/22/23 16:04 Freq: Status: Active Protocol: Document 07/13/23 09:37 ED (Rec: 07/13/23 09:40 ED [id number]) Out-Patient Physical Therapy Visit Information Visit Information Visit Type Treatment Note Visit Start Time 09:00 Visit Stop Time 09:40 Total Visit Minutes 40 Visit Number 4 PT-OP-B Current Condition Start: 06/22/23 16:04 Freq: Status: Active Protocol: Document 06/22/23 16:05 ED (Rec: 06/22/23 17:09 ED [id number]) Current Condition History of Current Condition Current Complaints B knee pain History of Current Condition Pt states that she has been noticing bilateral knee pain mostly after long hikes. She states she had radiographs which revealed mild OA in both knees. She states that she will have a little swelling and pain after long hikes, especially when going down the mountain. Pt states that she used to lift weights but has not been doing that since started. She states that she has 5# ankle weights at home and no other exercise equipment. Treatment Goals Patient/Caregiver Goals Be able to hike 8 miles c/o debilitating pain. PT-OP-C Subjective Start: 06/22/23 16:04 Freq: Status: Active Protocol: Document 07/13/23 09:37 ED (Rec: 07/13/23 09:40 ED [id number]) OP-PT Subjective Patient Comments Patient Comments Pt states that she is ready to be discharged from PT. She states that she feels more confident about her body now and is less hesitant to go on hikes. She was happy to state she was able to go on an 8 mile hike last week and it felt good. She plans on going to a local gym starting in July. PT-OP-K Range of Motion Start: 06/22/23 16:04 Freq: Status: Active Protocol: Document 06/22/23 16:05 ED (Rec: 06/22/23 17:09 ED [id number]) Knee Goniometric Range of Motion Knee Right Patient Position Supine Flexion Active (degrees) 135 Extension Active (degrees) 5 Comments lacking 5 degrees ext Left Patient Position Supine Flexion Active (degrees) 135 Extension Active (degrees) 5 Comments lacking 5 degrees ext PT-OP-M Strength Start: 06/22/23 16:04 Freq: Status: Active Protocol: Document 06/22/23 16:05 ED (Rec: 06/22/23 17:09 ED [id number]) Knee Strength Knee Manual Muscle Testing Right Flexion (S2) 5 Normal Extension (L3) 5 Normal Left Flexion (S2) 5 Normal Extension (L3) 5 Normal PT-OP-Q Treatments Start: 06/22/23 16:04 Freq: Status: Active Protocol: Document 07/13/23 09:37 ED (Rec: 07/13/23 09:40 ED [id number]) Cardio Equipment Bicycle (Upright) Duration (Minutes) 10 Resistance 4 Therapeutic Exercises Supine Exercises bridge Side bilateral Reps/Minutes 3x8-12 Comments unilateral Sitting Exercises LAQ Side bilateral Reps/Minutes 2p36-08 Comments unilateral Standing Exercises heel raise Side bilateral Reps/Minutes 2-3xfatigue Comments unilateral wall squat Reps/Minutes [id number]'' Comments isometric split squat Side bilateral Reps/Minutes 2-3k99-75 Therapeutic Activity Therapeutic Activity squat Reps/Minutes x15 PT-OP-T Assessment and Plan Start: 06/22/23 16:04 Freq: Status: Active Protocol: Document 07/13/23 09:37 ED (Rec: 07/13/23 09:40 ED [id number]) Physical Therapy Assessment Goals Four Impairment LEFs Wiring Technician Goal (LTG) Pt will [place] LEFS score to 70/80. Three Impairment pain Short Term Goal (STG) Pt will report 20% improvement in pain during recreational activities. STG Duration 3 weeks -MET Retirement Goal (LTG) Pt will report 50% improvement in pain during recreational activities. LTG Duration 6-8 weeks Two Impairment ROM Short Term Goal (STG) Pt will improve knee extension ROM to 0 degrees STG Duration 3-4 weeks One Impairment HEP Short Term Goal (STG) Pt will report performing HEP 2-3 days/week. STG Duration 2 weeks - MET Retirement Goal (LTG) Pt will report performing HEP 2-3 days/week. LTG Duration 6 weeks Progress Towards Goals Progress Towards Goals Progressing Toward Goals Assessment Summary Assessment PT and patient went through the HEP that the patient currently has in order to condense it into a more structured routine. PT added additional exercises such as bridge variations, walking lunges, squats, and introduction to jumping activities. PT and patient will go over routine again at next visit so patient can become more independent in her exercise programming. Physical Therapy Plan Frequency and Duration Frequency of Treatment 1x/Week Duration of treatment (weeks) 10 Plan of Care Start Date 06/22/23 Plan of Care End Date 09/20/23 Next Visit Focus/Plan Next Note Type Discharge Summary
--- NOTE | 2023-07-31 09:56 | PT.OPDS ---
Current Diagnoses Pain in right knee (07/13/23) Pain in left knee (07/13/23) Visit Care Team Role Provider Type Jared Birch DO Attending Provider Physician Family Provider Primary Care Provider Referring Provider Specialty: Family Practice Address: [address] [place] [address], [facility] Email: Visit Number Visit Number 4 Discharge Summary PT-OP-B Current Condition Start: 06/22/23 16:04 Freq: Status: Active Protocol: Document 06/22/23 16:05 ED (Rec: 06/22/23 17:09 ED [id number]) Current Condition History of Current Condition Current Complaints B knee pain History of Current Condition Pt states that she has been noticing bilateral knee pain mostly after long hikes. She states she had radiographs which revealed mild OA in both knees. She states that she will have a little swelling and pain after long hikes, especially when going down the mountain. Pt states that she used to lift weights but has not been doing that since started. She states that she has 5# ankle weights at home and no other exercise equipment. Treatment Goals Patient/Caregiver Goals Be able to hike 8 miles c/o debilitating pain. PT-OP-C Subjective Start: 06/22/23 16:04 Freq: Status: Active Protocol: Document 07/13/23 09:37 ED (Rec: 07/13/23 09:40 ED [id number]) OP-PT Subjective Patient Comments Patient Comments Pt states that she is ready to be discharged from PT. She states that she feels more confident about her body now and is less hesitant to go on hikes. She was happy to state she was able to go on an 8 mile hike last week and it felt good. She plans on going to a local gym starting in July. PT-OP-K Range of Motion Start: 06/22/23 16:04 Freq: Status: Active Protocol: Document 06/22/23 16:05 ED (Rec: 06/22/23 17:09 ED [id number]) Knee Goniometric Range of Motion Knee Right Patient Position Supine Flexion Active (degrees) 135 Extension Active (degrees) 5 Comments lacking 5 degrees ext Left Patient Position Supine Flexion Active (degrees) 135 Extension Active (degrees) 5 Comments lacking 5 degrees ext PT-OP-M Strength Start: 06/22/23 16:04 Freq: Status: Active Protocol: Document 06/22/23 16:05 ED (Rec: 06/22/23 17:09 ED [id number]) Knee Strength Knee Manual Muscle Testing Right Flexion (S2) 5 Normal Extension (L3) 5 Normal Left Flexion (S2) 5 Normal Extension (L3) 5 Normal PT-OP-T Assessment and Plan Start: 06/22/23 16:04 Freq: Status: Active Protocol: Document 07/31/23 09:53 ED (Rec: 07/31/23 09:56 ED [id number]) Physical Therapy Assessment Goals Four Impairment LEFs Care Coordinator Goal (LTG) Pt will [place] LEFS score to 70/80. Three Impairment pain Short Term Goal (STG) Pt will report 20% improvement in pain during recreational activities. STG Duration 3 weeks -MET Nursing Home Goal (LTG) Pt will report 50% improvement in pain during recreational activities. LTG Duration 6-8 weeks Two Impairment ROM Short Term Goal (STG) Pt will improve knee extension ROM to 0 degrees STG Duration 3-4 weeks -NOT MET One Impairment HEP Short Term Goal (STG) Pt will report performing HEP 2-3 days/week. STG Duration 2 weeks - MET Nursing Home Goal (LTG) Pt will report performing HEP 2-3 days/week. LTG Duration 6 weeks - MET Progress Towards Goals Progress Towards Goals Progressing Toward Goals Assessment Summary Assessment Pt will be discharged from physical therapy services at this time. PT provided patient c/ comprehensive HEP that she can do at home or at her gym. PT spoke c/ patient over the phone recently and she stated she was able to go backpacking and was shocked by how well her body and knees tolerated the hiking. Pt should be able to continue her progress independently c/ her HEP. Physical Therapy Plan Discharge Physical Therapy Discharge Reasons Goals Met Discharge Comments patient able to return to gym and hiking/backpacking and have considerably less knee pain than previously
== END 2023-08-10 08:26 ==
LOC: PHYS 09:00
PROVIDERS: Absent Provider Family Medicine; Family Provider Family Medicine; PCP Family Medicine; Referring Provider Family Medicine; Visit Provider Family Medicine
DX: M25.561 Pain in right knee (principal); M25.562 Pain in left knee
CPT/HCPCS: 97110; 97161; 97530

== ENCOUNTER → 2023-09-27 17:06 | Outpatient (CLI) | payer MEDICARE, OTHER, SELFPAY ==
--- NOTE | 2023-09-27 | DI.MG.S_ITS ---
BILATERAL DIGITAL SCREENING MAMMOGRAM 3D/2D WITH CAD: 09/27/2023 CLINICAL: Routine screening. Family history of breast cancer. Comparison is made to exams dated: 09/14/2022 mammogram, 08/05/2021 mammogram, and 07/27/2020 mammogram - [facility]. Both breasts are heterogeneously dense, which may obscure small masses (category c / 51-75% glandular tissue). Current study was also evaluated with a Computer Aided Detection (CAD) system. No significant masses, calcifications, or other findings are seen in either breast. There has been no significant interval change. IMPRESSION: NEGATIVE There is no mammographic evidence of malignancy. A 1 year screening mammogram is recommended. Based on Tyrer-Cuzick model (a risk assessment model), the patient's lifetime risk is 30.2% and her 10 year risk is 15.6%. If a patient has an elevated risk, a more comprehensive evaluation should be considered and/or a referral to a genetic counselor. The [place] [employer], [place] [employer], and NCCN Guidelines advise the consideration of Breast MRI as an adjunct to screening mammography in patients whose Lifetime risk to develop breast cancer is 20% or higher. This exam was interpreted at Station ID: [id number]. NOTE: For mammograms, a report in lay terms will be sent to the patient. Approximately 15% of breast malignancies will not be visualized mammographically. In the management of a palpable breast mass, a negative mammogram must not discourage biopsy of a clinically suspicious lesion. Electronically Signed By: Mathieu tan/adele:09/28/2023 08:27:39 copy to: JENNIE PERES letter sent: Normal Exam ACR BI-RADS Category 1: Negative [id number]
== END ==
PROVIDERS: Family Provider Family Medicine; PCP Family Medicine; Referring Provider Family Medicine; Visit Provider Family Medicine
DX: Z12.31 Encounter for screening mammogram for malignant neoplasm of breast (principal); Z80.3 Family history of malignant neoplasm of breast
CPT/HCPCS: 77063; 77067

== ENCOUNTER → 2024-04-02 11:01 | Outpatient (CLI) | payer MEDICARE, OTHER, SELFPAY ==
[2024-04-02 12:08] LABS: BUN Creatinine Ratio 23.8 (6-22); Blood Urea Nitrogen 15 mg/dL (7-17); Calcium 9.2 mg/dL (8.4-10.2); Carbon Dioxide 29 mmol/L (22-32); Chloride 108 mmol/L (98-107); Estimated Glomerular Filt Rate > 60 mL/min (>60); Glucose 87 mg/dL (80-110); HEMOLYSIS < 15 (0-50); Sodium 139 mmol/L (137-145)
[2024-04-02 12:48] LABS: Hematocrit 36.9 % (36-46); Hemoglobin 12.5 g/dL (12.0-16.0); Mean Corpuscular HGB Conc 33.9 % (30-36); Mean Corpuscular Hemoglobin 31.3 PG (26-34); Mean Corpuscular Volume 92.4 fL (80-100); Platelet Count 231 X10^3/uL (150-400); Red Cell Distribution Width 13.1 % (11.6-14.8); White Blood Cell Count 3.9 X10^3/uL (4.5-11.0)
[2024-04-02 12:52] LABS: Hemoglobin A1C% w Est Avg Glu 5.5 % (4.0-6.0)
[2024-04-02 13:08] LABS: Cholesterol 206 mg/dL (140-199); HDL Cholesterol 88 mg/dL (40-60); LDL Cholesterol Calculated 105 mg/dL (<100); Triglycerides 65 mg/dL (35-150)
[2024-04-02 13:36] LABS: TSH w/ Reflex to FT4 2.14 uIU/mL (0.47-4.68)
== END ==
PROVIDERS: Family Provider Family Medicine; PCP Family Medicine; Referring Provider Nurse Practitioner Family; Visit Provider Nurse Practitioner Family
DX: R73.01 Impaired fasting glucose (principal); E03.9 Hypothyroidism, unspecified; Z00.00 Encounter for general adult medical examination without abnormal findings; Z78.0 Asymptomatic menopausal state; E78.5 Hyperlipidemia, unspecified
CPT/HCPCS: 36415; 80048; 80061; 83036; 84443; 85027; 86803

== ENCOUNTER → 2024-10-08 14:02 | Outpatient (CLI) | payer MEDICARE, OTHER, SELFPAY ==
--- NOTE | 2024-10-08 14:04 | DI.MG.S_ITS ---
BILATERAL DIGITAL SCREENING MAMMOGRAM 3D/2D WITH CAD: 10/08/2024 CLINICAL: Routine screening. Family history of breast cancer. Comparison is made to exams dated: 09/27/2023 mammogram, 09/14/2022 mammogram, 08/05/2021 mammogram, 07/27/2020 mammogram, and 01/22/2019 mammogram - [facility]. The breasts are heterogeneously dense, which may obscure small masses (category c / 51-75% glandular tissue). Current study was also evaluated with a Computer Aided Detection (CAD) system. No significant masses, calcifications, or other findings are seen in either breast. There has been no significant interval change. IMPRESSION: NEGATIVE There is no mammographic evidence of malignancy. A 1 year screening mammogram is recommended. Based on Tyrer-Cuzick model (a risk assessment model), the patient's lifetime risk is 29.0% and her 10 year risk is 15.5%. If a patient has an elevated risk, a more comprehensive evaluation should be considered and/or a referral to a genetic counselor. The [place] [employer], [place] [employer], and NCCN Guidelines advise the consideration of Breast MRI as an adjunct to screening mammography in patients whose Lifetime risk to develop breast cancer is 20% or higher. This exam was interpreted at Station ID: [id number]. NOTE: For mammograms, a report in lay terms will be sent to the patient. Approximately 15% of breast malignancies will not be visualized mammographically. In the management of a palpable breast mass, a negative mammogram must not discourage biopsy of a clinically suspicious lesion. Electronically Signed By: Shiela Brown M.D., Ph.D. adam/adele:10/09/2024 18:00:41 copy to: JENNIE PERES letter sent: Normal Exam ACR BI-RADS Category 1: Negative
== END ==
PROVIDERS: Family Provider Family Medicine; PCP Family Medicine; Referring Provider Family Medicine; Visit Provider Family Medicine
DX: Z12.31 Encounter for screening mammogram for malignant neoplasm of breast (principal); Z80.3 Family history of malignant neoplasm of breast; R92.333 Mammographic heterogeneous density, bilateral breasts
CPT/HCPCS: 77063; 77067

== ENCOUNTER → 2025-05-01 07:11 | Outpatient (CLI) | payer MEDICARE, OTHER, SELFPAY ==
[2025-05-01 09:18] LABS: Cholesterol 191 mg/dL (140-199); HDL Cholesterol 69 mg/dL (40-60); LDL Cholesterol Calculated 110 mg/dL (<100); Triglycerides 61 mg/dL (35-150)
== END ==
PROVIDERS: Family Provider Family Medicine; PCP Family Medicine; Referring Provider Family Medicine; Visit Provider Family Medicine
DX: E78.5 Hyperlipidemia, unspecified (principal); E03.9 Hypothyroidism, unspecified
CPT/HCPCS: 36415; 80061; 84443

== ENCOUNTER → 2025-10-22 16:55 | Outpatient (CLI) | payer MEDICARE, OTHER, SELFPAY ==
--- NOTE | 2025-10-22 16:58 | DI.MG.S_ITS ---
MM screening mammo BI: 10/22/2025. BI-RADS: 1 CLINICAL: 65-year old female for bilateral screening mammogram. Tyrer-Cuzick lifetime risk of 18.5%. Current reported family history of breast cancer: sister, sister's daughter, maternal aunt, maternal aunt's daughter and second maternal aunt's daughter. PRIOR EXAMS 10/08/2024, 09/27/2023, 09/14/2022, 08/05/2021. MAMMOGRAPHY TECHNIQUE: 2D and 3D (tomosynthesis) digital mammographic views obtained, with additional images as needed for full coverage. Current study was also evaluated with a Computer Aided Detection (CAD) system. DENSITY C. The breasts are heterogeneously dense, which may obscure small masses. MAMMOGRAPHY FINDINGS Bilateral: No suspicious mass, asymmetry, microcalcification, or other abnormality seen. No significant change from comparison. IMPRESSION: * No evidence of malignancy. RECOMMENDATIONS Bilateral * Annual screening mammography. OVERALL ASSESSMENT CATEGORY BI-RADS-1: Negative. The [employer] recommends annual screening mammography beginning at age 40 for women with average risk of breast cancer. ELECTRONICALLY SIGNED: Marcellus Dubois M.D. on 10/23/2025 at 10:32:32 AM PT Interpreting Station ID: [id number]
== END ==
PROVIDERS: PCP Registered Nurse; Referring Provider Family Medicine; Visit Provider Family Medicine
DX: Z12.31 Encounter for screening mammogram for malignant neoplasm of breast (principal); R92.333 Mammographic heterogeneous density, bilateral breasts; Z80.3 Family history of malignant neoplasm of breast
CPT/HCPCS: 77063; 77067